=== PATIENT | female | born 1960 | race Caucasian/White ===

== ENCOUNTER → 2021-02-21 | Outpatient (CLI) | payer BC ==
[~2021-02-21] MED LIST: ATOR20TA65 PO; FENO54TA6 PO; GABA600T10 PO; MONT-39 PO
== END | disposition home or self-care (01) ==
LOC: SHCH 10:26
PROVIDERS: ATTEND Internal Medicine Cardiovascular Disease
DX: I35.8 Other nonrheumatic aortic valve disorders (principal); I11.9 Hypertensive heart disease without heart failure; E11.9 Type 2 diabetes mellitus without complications; E78.5 Hyperlipidemia, unspecified; Z95.0 Presence of cardiac pacemaker
CPT/HCPCS: 93306; 93356

== ENCOUNTER → 2022-12-11 | Outpatient (CLI) | payer OTHER | END | disposition home or self-care (01) | LOC: OIH 09:32 | PROVIDERS: ATTEND Internal Medicine Cardiovascular Disease | DX: Z13.6 Encounter for screening for cardiovascular disorders (principal) | CPT/HCPCS: 75571 ==

== ENCOUNTER → 2023-10-28 | Outpatient (CLI) | payer OTHER | END | disposition home or self-care (01) | LOC: LAB 10:24 | PROVIDERS: ATTEND Internal Medicine Gastroenterology | DX: R10.84 Generalized abdominal pain (principal) | CPT/HCPCS: 36415; 82565; 84520 ==

== ENCOUNTER 2023-11-07 13:36 | Emergency (ER) | payer OTHER ==
[~2023-11-07] VITALS: Ht 160 cm; Wt 76.2 kg
[~2023-11-07 13:36] MED LIST changes: +GABA-1405 PO; -GABA600T10 PO
[2023-11-07 15:16] LABS: BASOPHILS # (AUTO) 0.02 K/uL (0.00-0.20); BASOPHILS % (AUTO) 0.3 % (0.0-5.0); EOSINOPHILS # (AUTO) 0.07 K/uL (0.00-0.70); EOSINOPHILS % (AUTO) 0.9 % (0.0-8.0); HEMATOCRIT 37.6 % (36-48); IMMATURE GRANULOCYTE ABSOLUTE 0.03 K/uL (0-1); LYMPHOCYTES # (AUTO) 1.6 K/uL (1.0-4.8); LYMPHOCYTES % (AUTO) 20.4 % (21.0-51.0); MEAN CORPUSCULAR HEMOGLOBIN 24.8 pg (27.0-33.0); MEAN CORPUSCULAR HGB CONC 31.1 g/dL (32.0-36.0); MEAN CORPUSCULAR VOLUME 79.8 fL (79-99); MONOCYTES # (AUTO) 0.8 K/uL (0.1-1.0); MONOCYTES % (AUTO) 10.1 % (3.0-13.0); NEUTROPHILS # (AUTO) 5.3 K/uL (1.8-7.7); NEUTROPHILS % (AUTO) 67.9 % (40.0-77.0); PLATELET COUNT (AUTO) 333 K/uL (130-400); RED BLOOD CELL COUNT(AUTO) 4.71 MIL/uL (4.00-5.50); RED CELL DISTRIBUTION WIDTH 14.3 % (11.0-15.5); WHITE BLOOD COUNT (AUTO) 7.8 K/uL (4.8-10.8)
[2023-11-07 15:33] LABS: POTASSIUM 3.7 mmol/L (3.5-5.1)
[2023-11-07 15:42] LABS: ALBUMIN 3.2 g/dL (3.5-5.0); BILIRUBIN,TOTAL 0.6 mg/dL (0.2-1.0); TOTAL PROTEIN, SERUM 8.1 g/dL (6.0-8.3)
[2023-11-07] MEDS: cefTRIAXone 1G VIAL IVPB ONE (16:06)
[2023-11-07 16:07] VITALS: PULSE 85; RESP 16
[2023-11-07] MEDS: Solu-medROL 40MG VIAL IVP ONE (16:07)
[2023-11-07] MEDS: IpraTROPium/alBUTERol SULFATE 3 ML SOLUTION IH ONE (16:25)
[2023-11-07] MEDS ORDERED: PRED20TA3 PO (17:02)
[2023-11-07 17:34] VITALS: BP 132/50; PULSE 79; RESP 16; TEMP 97.8; O2SAT 98
== END 2023-11-07 17:41 | disposition home or self-care (01) ==
LOC: EDH 13:36
DX: J20.9 Acute bronchitis, unspecified (principal); J21.9 Acute bronchiolitis, unspecified; E11.9 Type 2 diabetes mellitus without complications; I10 Essential (primary) hypertension; E78.00 Pure hypercholesterolemia, unspecified; Z79.899 Other long term (current) drug therapy
CPT/HCPCS: 99285; 96365; 71045; 96375; 84484; 80053; 85025; 36415; 93005; 94640; J0696; J2919

== ENCOUNTER 2023-12-22 17:38 | Emergency (ER) | payer OTHER ==
[~2023-12-22] VITALS: Ht 160 cm; Wt 76.2 kg
[~2023-12-22 17:38] MED LIST changes: +PRED20TA3 PO
[2023-12-22 17:58] VITALS: BP 137/75; TEMP 99.7; O2SAT 98
[2023-12-22 18:15] LABS: BASOPHILS % (AUTO) 0.2 % (0.0-5.0); EOSINOPHILS % (AUTO) 0.3 % (0.0-8.0); HEMATOCRIT 41.1 % (36-48); LYMPHOCYTES % (AUTO) 13.3 % (21.0-51.0); MEAN CORPUSCULAR HEMOGLOBIN 24.9 pg (27.0-33.0); MEAN CORPUSCULAR HGB CONC 30.7 g/dL (32.0-36.0); MEAN CORPUSCULAR VOLUME 81.1 fL (79-99); MONOCYTES % (AUTO) 8.3 % (3.0-13.0); NEUTROPHILS % (AUTO) 77.2 % (40.0-77.0); PLATELET COUNT (AUTO) 225 K/uL (130-400); RED BLOOD CELL COUNT(AUTO) 5.07 MIL/uL (4.00-5.50); RED CELL DISTRIBUTION WIDTH 17.7 % (11.0-15.5); WHITE BLOOD COUNT (AUTO) 13.6 K/uL (4.8-10.8)
[2023-12-22 18:16] LABS: BASOPHILS # (AUTO) 0.03 K/uL (0.00-0.20); EOSINOPHILS # (AUTO) 0.04 K/uL (0.00-0.70); LYMPHOCYTES # (AUTO) 1.8 K/uL (1.0-4.8); MONOCYTES # (AUTO) 1.1 K/uL (0.1-1.0); NEUTROPHILS # (AUTO) 10.5 K/uL (1.8-7.7)
[2023-12-22 18:24] LABS: APPEARANCE,URINE CLEAR (CLEAR); BILIRUBIN,URINE NEGATIVE (NEGATIVE); COLOR,URINE LIGHT-YELLOW (YELLOW); CREATININE 1.1 mg/dL (0.5-1.0); GLUCOSE, URINE (UA) NEGATIVE (NEGATIVE); KETONES,URINE NEGATIVE (NEGATIVE); LEUKOCYTE ESTERASE ,URINE NEGATIVE Leu/uL (NEGATIVE); NITRATE,URINE NEGATIVE (NEGATIVE); POTASSIUM 3.5 mmol/L (3.5-5.1); PROTEIN,URINE NEGATIVE (NEGATIVE); UROBILINOGEN,URINE 0.2 mg/dL (0.2-1.0)
[2023-12-22 18:25] LABS: ADD UA MICROSCOPIC YES
[2023-12-22 18:26] LABS: BACTERIA,URINE RARE /HPF (None Seen); SQUAMOUS EPITHELIAL CELL,UR RARE /HPF (0-2)
[2023-12-22 18:41] LABS: COVID19 (SARS ANTIGEN RAPID) PRESUMPTIVE NEGATIVE (NEGATIVE); INFLUENZA TYPE A Negative For Type A (NEGATIVE); INFLUENZA TYPE B Negative For Type B (NEGATIVE)
[2023-12-22] MEDS: ASPIRIN 325MG TAB PO ONE (18:53)
[2023-12-22] MEDS: IpraTROPium/alBUTERol SULFATE 3 ML SOLUTION IH ONE (18:59)
[2023-12-22 19:03] VITALS: PULSE 98; RESP 18
[2023-12-22] MEDS ORDERED: AMOX1TAB16 PO (19:40)
[2023-12-22] MEDS: cefTRIAXone 1G VIAL IM ONE (19:43)
[2023-12-23] MEDS ORDERED: METO-408 PO (20:15)
[2023-12-23] MEDS ORDERED: ROSU5TAB43 PO (20:15)
[2023-12-23] MEDS ORDERED: DICY20TA3 PO (20:15)
[2023-12-23] MEDS ORDERED: METF-444 PO (20:15)
[2023-12-23] MEDS ORDERED: OMEP20CA12 PO (20:15)
== END 2023-12-22 20:00 | disposition home or self-care (01) ==
LOC: EDH 17:38
DX: K11.20 Sialoadenitis, unspecified (principal); R07.89 Other chest pain; D72.829 Elevated white blood cell count, unspecified; E87.1 Hypo-osmolality and hyponatremia; E87.8 Other disorders of electrolyte and fluid balance, not elsewhere classified; E11.9 Type 2 diabetes mellitus without complications; E78.00 Pure hypercholesterolemia, unspecified; I11.9 Hypertensive heart disease without heart failure; J45.909 Unspecified asthma, uncomplicated; Z20.822 Contact with and (suspected) exposure to COVID-19; Z79.899 Other long term (current) drug therapy; Z95.810 Presence of automatic (implantable) cardiac defibrillator
CPT/HCPCS: 99285; 71045; 87426; 84484; 80048; 85025; 87880; 87804 ×2; 81001; 36415; 96372; 93005; 94640; J0696

== ENCOUNTER → 2024-02-13 | Outpatient (CLI) | payer OTHER ==
[~2024-02-13] MED LIST changes: +AMOX1TAB16 PO; +DICY20TA3 PO; +METF-444 PO; +METO-408 PO; +OMEP20CA12 PO; -PRED20TA3 PO; +ROSU5TAB51 PO
[2024-02-13] MEDS: REGADENOSON 0.4 MG/5 ML PF SYG IVP ONE (13:34)
--- NOTE | 2024-02-16 09:05 | HMCSR ---
APPROVED REPORT Height: 5 ft 3in Weight: 167 lbs TEST INDICATIONS CHEST PAIN UNSPECIFIED The imaging protocol used to acquire images was Rest Tc-99m/stress Tc-99m 1 day Consent: The procedure was explained and understood by the patient. Informerd consent was witnessed Frida Altamirano RN First, low dose rest was performed then high dose stress. RESTING DATA: The resting ekg shows: NSR Rest SPECT myocardial perfusion imaging was performed in supine position 94 minutes following the int ravenous injection of 12.1 mCi of Tc-99 Sestamibi. Time of rest injection: 09:14: Date: 02/13/2024 Time of rest imagin:48: Date: 02/13/2024 PHARMACOLOGIC STRESS: Pharmacologic stress test was performed by injecting regadenoson 0.4 mg IV push followed by the intra venous injection of 30.5 mCi of Tc-99 Sestamibi. Time of stress injection: 11:30: Date: 02/13/2024 Time of stress imagin:47: Date: 02/13/2024 Heart Rate at time of stress injection: 58 bpm. Gated Stress SPECT was performed 77 minutes after stress injection. The images were gated to evaluate regional wall motion and calculate left ventricular ejection fracti on. STRESS DETAILS Reason for Termination: Infusion complete Stress Symptoms: Chest Discomfort Max HR Achieved: 94 bpm % of APMHR Achieved: 61 Max Blood Pressure: 149/71 mmHg Stress ECG: NSR Conclusion Inferior ischemia Apical infarct LV ejection fraction 60% Normal LV wall motion Normal LV size at rest and stress No increased lung uptake
== END | disposition home or self-care (01) ==
LOC: SHCH 08:45
PROVIDERS: ATTEND Internal Medicine Cardiovascular Disease
DX: R07.89 Other chest pain (principal)
CPT/HCPCS: 78452; 93017; J2785; A9500 ×2

== ENCOUNTER 2024-04-21 05:51 | Day surgery (SDC) | payer OTHER ==
[2024-04-21] VITALS (11 sets, daily range): BP systolic 117–149; BP diastolic 54–70; PULSE 63–80; RESP 16–20; TEMP 97.2–97.7
[~2024-04-21] VITALS: Ht 160 cm; Wt 78.9 kg
[~2024-04-21 05:51] MED LIST changes: -AMOX1TAB16 PO; -ATOR20TA65 PO; -DICY20TA3 PO; +METO-391 PO; -METO-408 PO
[2024-04-21] MEDS: 0.9%NACL 1000ML 1,000 ML IV ONE (06:59)
[2024-04-21] MEDS: ALBUTEROL 0.083% 2.5 MG/3 ML INH IH ONE ×2 (07:17)
[2024-04-21] MEDS ORDERED: proPOFol 10 MG/ML 20ML VIAL IV ONE (08:23)
--- NOTE | 2024-04-21 09:55 | NUR ---
Full and complete Discharge Instructions given to Patient and Family both verbally and in writing.. All questions answered.Voiced understanding to GI procedure precautions and Follow Up. PIV removed with catheter tip intact. Denies c/o pain or discomfort. W/C to POV with Family to home.
== END 2024-04-21 09:48 | disposition home or self-care (01) ==
LOC: DAH 05:51
PROVIDERS: ATTEND Internal Medicine Gastroenterology
DX: R19.7 Diarrhea, unspecified (principal); K29.50 Unspecified chronic gastritis without bleeding; K31.7 Polyp of stomach and duodenum; K57.30 Diverticulosis of large intestine without perforation or abscess without bleeding; K22.2 Esophageal obstruction; K44.9 Diaphragmatic hernia without obstruction or gangrene; Z86.0100 Personal history of colon polyps, unspecified; J45.909 Unspecified asthma, uncomplicated; I10 Essential (primary) hypertension; E78.5 Hyperlipidemia, unspecified; E11.40 Type 2 diabetes mellitus with diabetic neuropathy, unspecified; K76.0 Fatty (change of) liver, not elsewhere classified; K21.9 Gastro-esophageal reflux disease without esophagitis; G47.33 Obstructive sleep apnea (adult) (pediatric); Z99.89 Dependence on other enabling machines and devices; Z95.0 Presence of cardiac pacemaker; Z79.899 Other long term (current) drug therapy
CPT/HCPCS: 43251; 82948 ×2; 43239; 45380; 45385; 94640; J7030 ×2; J2704; A4620; A4215 ×2; A4223; A4222; A4221; A4663; A4606; J3490